=== PATIENT | female | born 1975 | race African-American/Black ===

== ENCOUNTER 2023-09-15 15:22 | Emergency (ER) | payer SELFPAY ==
[2023-09-15] MEDS ORDERED: Sodium Chloride 0.9% 10 ML Syringe FLUSH PRN (15:28)
[2023-09-15] MEDS ORDERED: hydrALAZINE 20 MG/ML SDV IVPUSH ONE ×2 (15:39→16:13)
[2023-09-15] MEDS ORDERED: Sodium Chloride 0.9% 1,000 ML IV SCH (15:45)
[2023-09-15 15:47] LABS: BASOPHILS ABSOLUTE AUTO 0.01 10^3/uL (0.00-0.10); BASOPHILS PERCENT AUTO 0.2 % (0.0-1.0); EOSINOPHILS ABSOLUTE AUTO 0.07 10^3/uL (0.10-0.30); EOSINOPHILS PERCENT AUTO 1.4 % (1.0-3.0); HEMATOCRIT 43.6 % (37.0-47.0); HEMOGLOBIN 14.3 g/dL (12.0-16.0); LYMPHOCYTES ABSOLUTE AUTO 2.24 10^3/uL (1.00-4.00); LYMPHOCYTES PERCENT AUTO 44.3 % (20.0-40.0); MEAN CORPUSCULAR HEMOGLOBIN 29.5 pg (27.0-31.0); MEAN CORPUSCULAR HGB CONC 32.8 g/dL (32.0-36.0); MEAN CORPUSCULAR VOLUME 90.1 fL (82.0-92.0); MEAN PLATELET VOLUME 9.8 fL (7.4-10.4); MONOCYTES ABSOLUTE AUTO 0.35 10^3/uL (0.10-0.80); MONOCYTES PERCENT AUTO 6.9 % (2.0-8.0); NEUTROPHILS ABSOLUTE AUTO 2.39 10^3/uL (2.50-7.00); NEUTROPHILS PERCENT AUTO 47.2 % (50.0-70.0); PLATELET COUNT,PLT 237 10^3/uL (150-400); RED BLOOD CELL COUNT 4.84 10^6/uL (3.80-5.50); RED CELL DISTRIBUTION WIDTH 13.1 % (11.5-14.5); WHITE BLOOD CELL COUNT,WBC 5.06 10^3/uL (5.00-10.00)
[2023-09-15 16:04] LABS: ALANINE AMINOTRANSFERASE,ALT 12 U/L (14-63); ALBUMIN 3.28 g/dL (3.40-5.00); ALKALINE PHOSPHATASE 144 U/L (46-116); ANION GAP 13.2 mmol/L (5-15); ASPARTATE AMNIOTRANSFERASE,AST 15 U/L (15-37); B-TYPE NATRIURETIC PEPTIDE,BNP 7 pg/mL (0-100); BILIRUBIN TOTAL 0.5 mg/dL (0.2-1.0); BLOOD UREA NITROGEN,BUN 13 mg/dL (7-18); CALCIUM 8.7 mg/dL (8.7-10.3); CARBON DIOXIDE,CO2 27.3 mmol/L (21.0-32.0); CHLORIDE,CL 103 mmol/L (98-107); CREATININE 0.64 mg/dL (0.51-1.17); GLUCOSE RANDOM 91 mg/dL (70-140); LIPASE 40 U/L (16-77); MAGNESIUM 1.8 mg/dL (1.8-2.4); POTASSIUM,K 3.5 mmol/L (3.5-5.1); PROTEIN TOTAL,TP 6.4 g/dL (6.4-8.2); SODIUM,NA 140 mmol/L (136-145)
[2023-09-15 16:05] LABS: C-REACTIVE PROTEIN < 0.50 mg/dL (0.00-0.50); ESTIMATED GFR 108 mL/min (>=60)
[2023-09-15] MEDS ORDERED: Acetaminophen 500 MG Tab PO ONE (16:15)
[2023-09-15] MEDS ORDERED: Ketorolac 30 MG/ML SDV IVPUSH ONE (16:16)
[2023-09-15] MEDS ORDERED: LORazepam 2 MG/ML SDV IVPUSH ONE (16:57)
[2023-09-15] MEDS ORDERED: Acetaminophen 325 MG Tab PO ONE (19:28)
[2023-09-15] MEDS ORDERED: Diazepam 5 MG Tab PO ONE (20:04)
[2023-09-15] MEDS ORDERED: Ondansetron 4 MG Tab.DIS PO ONE (20:56)
[2023-09-16 01:07] VITALS: PULSE 94
[2023-09-16 01:09] VITALS: BP 161/96
== END 2023-09-15 21:49 | disposition home or self-care (01) ==
LOC: KA.ED 15:22
DX: I16.0 Hypertensive urgency (principal); F41.9 Anxiety disorder, unspecified
CPT/HCPCS: 36415; 71045; 80053; 83690; 83735; 83880; 84484; 85025; 86140; 93010; 96374; 96375; 96376; 99284; 99285-25; A9270-GY; J0360; J1885; J2060; J3490; J7030

== ENCOUNTER 2023-09-16 04:04 | Emergency (ER) | payer SELFPAY ==
[2023-09-16] MEDS ORDERED: hydrALAZINE 20 MG/ML SDV IVPUSH ONE (04:19)
[2023-09-16] MEDS ORDERED: Sodium Chloride 0.9% 10 ML Syringe FLUSH PRN (04:19)
[2023-09-16] MEDS ORDERED: HYDROmorphone 1 MG/ML Syringe IVPUSH ONE (04:19)
[2023-09-16] MEDS ORDERED: Naloxone 0.4 MG/ML SDV IVPUSH PRN (04:19)
[2023-09-16] MEDS ORDERED: Acetaminophen 325 MG Tab PO ONE (04:20)
[2023-09-16] MEDS ORDERED: Ondansetron 4 MG Tab.DIS PO ONE (06:14)
[2023-09-16] MEDS ORDERED: hydrALAZINE 10 MG Tab PO SCH (06:15)
== END 2023-09-16 10:00 | disposition home or self-care (01) ==
LOC: KA.ED 04:04
DX: R51.9 Headache, unspecified (principal); I10 Essential (primary) hypertension
CPT/HCPCS: 70450; 96374; 96375; 99284; A9270; J0360; J1170; J3490

== ENCOUNTER 2023-09-21 09:59 | Emergency (ER) | payer SELFPAY ==
[2023-09-21] MEDS ORDERED: methylPREDNISolone Sodium Succinate 125 MG/2 ML SDV IVPUSH ONE (11:54)
[2023-09-21] MEDS ORDERED: Sodium Chloride 0.9% 50 ML IV SCH (12:00)
[2023-09-21] MEDS ORDERED: Iopamidol 755 Mg/ML 100 ML Bottle IV ONE (12:00)
[2023-09-21] MEDS ORDERED: Ketorolac 30 MG/ML SDV IVPUSH ONE (12:33)
== END 2023-09-21 13:39 | disposition home or self-care (01) ==
LOC: KA.ED 09:59
DX: I10 Essential (primary) hypertension (principal); F41.9 Anxiety disorder, unspecified; F43.9 Reaction to severe stress, unspecified
CPT/HCPCS: 70470; 99284; J1885; J2930; J3490; Q9967; 96374; 96375

== ENCOUNTER 2023-09-22 23:10 | Emergency (ER) | payer SELFPAY ==
[2023-09-22] MEDS: Sodium Chloride 0.9% 1,000 ML IV ONE (23:37)
[2023-09-22] MEDS: Ketorolac 30 MG/ML SDV IVPUSH ONE (23:38)
[2023-09-22] MEDS: diphenhydrAMINE 50 MG/ML SDV IVPUSH ONE (23:39)
[2023-09-22] MEDS: Ondansetron 4 MG/2 ML SDV IVPUSH ONE (23:40)
[2023-09-23] MEDS: methylPREDNISolone Sodium Succinate 125 MG/2 ML SDV IVPUSH ONE (00:42)
== END 2023-09-23 08:55 | disposition home or self-care (01) ==
LOC: KA.ED 23:10
DX: R51.9 Headache, unspecified (principal); I10 Essential (primary) hypertension; Z79.899 Other long term (current) drug therapy; Z79.2 Long term (current) use of antibiotics
CPT/HCPCS: 96374; 96375; 99283; 99283-25; J1200; J1885; J2405; J2930; J7030